=== PATIENT | female | born 1950 | race Caucasian/White ===

== ENCOUNTER → 2019-04-21 | Outpatient (CLI) | payer MEDICARE, OTHER ==
[2019-04-21 11:51] LABS: ALBUMIN 4.1 g/dL (3.4-5.0); DIRECT BILIRUBIN 0.1 mg/dL (0.0-0.2); TOTAL BILIRUBIN 0.4 mg/dL (0.2-1.0); TOTAL PROTEIN 7.6 g/dL (6.4-8.2)
== END | disposition home or self-care (01) ==
LOC: LAB 10:53
PROVIDERS: ATTEND Podiatrist Foot & Ankle Surgery
DX: B35.1 Tinea unguium (principal)
CPT/HCPCS: 36415; 80076

== ENCOUNTER → 2021-03-19 | Outpatient (CLI) | payer MEDICARE, OTHER ==
[~2021-03-19] MED LIST: IOHEXOL 350 MG/ML 100 ML VIAL. IV ONE
[2021-03-19 09:05] LABS: CREATININE 0.8 mg/dL (0.6-1.0); GFR 70.3
--- NOTE | 2021-03-19 09:32 | RAD ---
Bilateral lower extremity venous duplex study 03/19/2021 8:39 AM Clinical History: Reason: HX OF DVT AFTER LT LEG FX-- Comparison: None Technique: Using a combination of real time ultrasound imaging and color-flow and pulse Doppler imagi ng techniques along with graded compression and augmentation, duplex evaluation of the deep venous sy stem of the both lower extremities was performed. Multiple images were obtained. Findings: There is no sonographic evidence of deep venous thrombosis involving the visualized deep ve nous structures of either lower extremity. Probable Hawthorne's cyst noted in the left popliteal fossa me asuring 5.2 x 3.2 x 1.6 cm. Impression: No evidence of deep venous thrombosis involving either lower extremity. Electronically signed by: Diaz Cuevas MD (03/19/2021 9:30 AM) [id number]
--- NOTE | 2021-03-19 10:11 | RAD ---
CTA CHEST History: Follow-up of pulmonary embolism. Comparison: CT PE 01/12/2021. Technique: CTA of the pulmonary arteries with intravenous contrast. 3-D postprocessing was performed. Findings: Pulmonary arteries: No new or chronic pulmonary embolism is identified. Aorta and great vessels: No aneurysm or dissection of the aortic arch or thoracic aorta. Thyroid: No significant abnormalities. Mediastinum and radha: No mediastinal masses or adenopathy is seen. Esophagus: The visualized esophagus is normal. Heart: The heart is normal in size. There is no pericardial effusion. Airways, Lungs, Pleura: No airspace consolidation, pleural effusion or pneumothorax. Upper abdomen: Small calcified 4 mm gallstone. Bilateral nonobstructing nephrolithiasis. Osseous structures and soft tissues: Within normal limits for age. Impression: 1. No acute or chronic pulmonary embolism. 2. Cholelithiasis and nephrolithiasis. ------ Exposure: One or more of the following individualized dose reduction techniques were utilized for thi s examination: 1. Automated exposure control 2. Adjustment of the mA and/or kV according to patient size 3. Use of iterative reconstruction technique. Electronically signed by: Shyam Pires MD (03/19/2021 10:09 AM) [facility]
== END ==
LOC: CT 08:21
PROVIDERS: ATTEND Internal Medicine Critical Care Medicine
DX: K80.20 Calculus of gallbladder without cholecystitis without obstruction (principal); N20.0 Calculus of kidney
CPT/HCPCS: 36415; 71275; 82565; 84520; 93970; Q9967